=== PATIENT | male | born 1965 | race African-American/Black ===

== ENCOUNTER 2019-12-03 04:45 | Inpatient (IN) | payer MEDICAID, OTHER ==
[~2019-12-03] VITALS: Ht 167.6 cm; Wt 104.0 kg
[2019-12-03] MEDS ORDERED: methylPREDNISolone SOD SUCC 125 MG/2 ML VL IV ONE (07:15)
[2019-12-03] MEDS ORDERED: ALBUTEROL SULF 2.5 MG/0.5ML(0.5%) NEB SOLN HHN ONE (07:15)
[2019-12-03] MEDS ORDERED: IPRATROPIUM BROM 0.5 MG/2.5ML INH SOL HHN ONE (07:15)
[2019-12-03 07:37] LABS: Alanine Aminotransferase 42 U/L (16-61); Albumin 3.4 g/dL (3.4-5.0); Anion Gap 4 (5-15); Blood Urea Nitrogen 7 mg/dL (7-18); Calcium 8.6 mg/dL (8.5-10.1); Carbon Dioxide 29 mmol/L (21-32); Chloride 108 mmol/L (98-107); Glucose 101 mg/dL (74-106); Sodium 141 mmol/L (136-145)
[2019-12-03 07:42] LABS: Alkaline Phosphatase 79 U/L (45-117); Aspartate Aminotransferase 26 U/L (15-37); BUN/Creatinine Ratio 9.1; Bilirubin, Total 0.6 mg/dL (0.2-1.0); GFR African American 135 mL/min; GFR Non-African American 111 mL/min; Total Protein 7.8 g/dL (6.4-8.2)
[2019-12-03 08:32] LABS: Basophils # (auto) 0 uL; Eosinophils # (auto) 0.2 uL; Neutrophils # (auto) 2.3 uL
[2019-12-03 08:34] LABS: Basophils % (auto) 0.4 % (0.0-2.0); Eosinophils % (auto) 4.7 % (0.0-7.0); Hematocrit 46.2 % (41.0-53.0); Hemoglobin 16.2 g/dL (13.5-17.5); Lymphocytes # (auto) 1.6 uL; Lymphocytes % (auto) 34.1 % (10.0-50.0); Monocytes # (auto) 0.4 uL; Monocytes % (auto) 9.8 % (0.0-12.0); Nucleated Red Blood Cells % 0.3 %; Platelet Count (auto) 92 10^3/uL (140-450); Red Blood Cells 4.48 10^6/uL (4.5-5.90); Red Cell Distribution Width 12.8 % (11.8-14.3); White Blood Cell 4.6 10^3/uL (4.4-10.8)
[2019-12-03] MEDS ORDERED: ALBUTEROL SULF 2.5 MG/0.5ML(0.5%) NEB SOLN NEB PRN (10:15)
[2019-12-03] MEDS ORDERED: ACETAMINOPHEN 500 MG TAB PO PRN (10:15)
[2019-12-03] MEDS ORDERED: LACTULOSE 20Gm/30ML SOLN PO PRN (10:15)
[2019-12-03] MEDS ORDERED: NITROGLYCERIN 0.4 MG SL TAB SL PRN (10:15)
[2019-12-03] MEDS ORDERED: traMADol HCL 50 MG TAB PO PRN (10:15)
[2019-12-03] MEDS ORDERED: PROMETHAZINE HCL 25 MG/ML 1ML IV PRN (10:15)
[2019-12-03] MEDS ORDERED: MORPHINE SULF INJ 2 MG/ML SYRINGE 1ML IV PRN (10:15)
[2019-12-03] MEDS ORDERED: OSELTAMIVIR 75 MG CAP PO ONE (10:15)
[2019-12-03] MEDS ORDERED: TEMAZEPAM 15 MG CAP PO PRN (10:15)
[2019-12-03] MEDS ORDERED: THIAMINE 100mg/ml INJ (200mg/2ml VIAL) IV ONE (11:00)
[2019-12-03] MEDS ORDERED: chlordiazePOXIDE HCL 25 MG CAP PO PRN (11:00)
--- NOTE | 2019-12-03 11:05 | NUR ---
MS admit from ER SCOTT PORTER admitted to tele after SBAR received. Patient oriented to SARAH LOVETT, RN primary RN, unit, room, bed, and unit policies regarding patient care and visiting hours. Patient encouraged to call if they need something. All questions and concerns addressed, patient verbalized understanding. Note: vs 97.2, 98% 2L NC, 77hr, 20rr, 124/67 WILL CONTINUE TO MONITOR Q1H AND PRN.
[2019-12-03 11:21] VITALS: BP 110/68
[2019-12-03] MEDS ORDERED: methylPREDNISolone SOD SUCC 40 MG/ML VL IV SCH (12:00)
[2019-12-03] MEDS: chlordiazePOXIDE HCL 5 MG CAP PO SCH ×2 (12:00→18:00)
--- NOTE | 2019-12-03 12:15 | NUR ---
Spoke to Dr. Rivas regarding patients cough and headache. Orders have been received and carried out.
[2019-12-03] MEDS: ALBUTEROL SULF 2.5 MG/0.5ML(0.5%) NEB SOLN NEB SCH ×2 (12:44→18:22)
[2019-12-03] MEDS: IPRATROPIUM BROM 0.5 MG/2.5ML INH SOL NEB SCH ×2 (12:44→18:22)
[2019-12-03] MEDS: SODIUM CHLORIDE 0.9% 1,000 ML IV SCH ×2 (13:14→23:27)
[2019-12-03] MEDS: guaiFENesin-DM 100/10mg/5ml SYR PO PRN ×2 (13:15→20:23)
[2019-12-03] MEDS: ACETAMINOPHEN 500 MG TAB PO PRN ×2 (13:15→20:26)
--- NOTE | 2019-12-03 13:30 | NUR ---
MED REC Patient provided some of his home medications, this information has been reconciled under home meds. Patients family will bring additional home medications tomorrow, to complete home med rec.
[2019-12-03] MEDS: DOXYCYCLINE 100MG/250ML 250 ML IV SCH ×2 (13:54→22:34)
[2019-12-03] MEDS ORDERED: BACL10TA PO (14:19)
[2019-12-03] MEDS ORDERED: HYDR-531 PO (14:19)
[2019-12-03 14:35] VITALS: BP 124/67
[2019-12-03 17:00] VITALS: BP 117/60
[2019-12-03 21:47] VITALS: BP 123/103
[2019-12-03] MEDS: OSELTAMIVIR 75 MG CAP PO SCH (22:00)
[2019-12-03] MEDS: methylPREDNISolone SOD SUCC 40 MG/ML VL IV SCH (22:34)
[2019-12-04] MEDS ORDERED: BACLOFEN 10 MG TAB PO PRN (00:15)
[2019-12-04] MEDS: IPRATROPIUM BROM 0.5 MG/2.5ML INH SOL NEB SCH ×4 (00:43→18:09)
[2019-12-04] MEDS: ALBUTEROL SULF 2.5 MG/0.5ML(0.5%) NEB SOLN NEB SCH ×4 (00:43→18:09)
[2019-12-04 05:53] VITALS: BP 117/69
[2019-12-04] MEDS: chlordiazePOXIDE HCL 5 MG CAP PO SCH ×4 (06:00→17:59)
[2019-12-04 06:40] VITALS: BP 143/54
--- NOTE | 2019-12-04 07:30 | NUR ---
Opening Shift Note Assumed care of patient, awake and alert. No S/S of distress/SOB or pain. Instructed on POC and to call for assist PRN, will continue to monitor for changes Q1hr and PRN. Bed in low and locked position, rails up x2, no-slip socks on. Patient complaining of sore throat and need for [place] for chronic back pain, informed patient he isn't prescribed [place] for pain but will medicate as ordered as well as notify MD of complains, patient verbalizes understanding.
--- NOTE | 2019-12-04 07:52 | NUR ---
Respiratory note: SCHEDULED MED NEB TX NOT GIVEN AT THIS TIME, DUE TO PATIENT REFUSAL. PATIENT STATED THAT THE BREATHING TX IRRITATES THE THROAT AND BEGINS TO COUGH. PATIENT STATED " I'M WILLING TO TAKE IT LATER TODAY." NO RESPIRATORY DISTRESS NOTED OR STATED. WILL CONTINUE TO MONITOR PATIENT.
[2019-12-04] MEDS: guaiFENesin-DM 100/10mg/5ml SYR PO PRN (08:05)
[2019-12-04 09:00] VITALS: BP 95/52
[2019-12-04] MEDS: THIAMINE 100mg/ml INJ (200mg/2ml VIAL) IV SCH (09:49)
[2019-12-04] MEDS: DOXYCYCLINE 100MG/250ML 250 ML IV SCH ×2 (09:49→21:46)
[2019-12-04] MEDS: methylPREDNISolone SOD SUCC 40 MG/ML VL IV SCH ×2 (09:49→21:46)
[2019-12-04] MEDS: ENOXAPARIN SOD 40 MG/0.4 ML SYRINGE SC SCH (09:51)
[2019-12-04] MEDS: OSELTAMIVIR 75 MG CAP PO SCH (10:00)
[2019-12-04] MEDS ORDERED: THROAT LOZENGES(CEPASTAT) MT PRN (11:00)
[2019-12-04] MEDS: HYDROcodone-ACET 10/325MG TAB PO PRN (11:16)
[2019-12-04 13:00] VITALS: BP 136/74
[2019-12-04] MEDS: SODIUM CHLORIDE 0.9% 1,000 ML IV SCH (13:17)
[2019-12-04 16:27] VITALS: BP 156/56
--- NOTE | 2019-12-04 17:00 | NUR ---
DR ANGEL AT BEDSIDE
--- NOTE | 2019-12-04 21:14 | NUR ---
IV insertion/ IV removal IV access obtained, via clean sterile technique by inserting 20 gauge catheter at after 1 attempt. IV secured properly. No trauma to site. Patient tolerated well. IV DC'd with clean sterile technique, catheter fully intact. Pressure dressing applied to site. Patient tolerated well.
[2019-12-04 22:09] VITALS: BP 133/72
[2019-12-05] MEDS: ALBUTEROL SULF 2.5 MG/0.5ML(0.5%) NEB SOLN NEB SCH ×4 (00:22→18:10)
[2019-12-05] MEDS: IPRATROPIUM BROM 0.5 MG/2.5ML INH SOL NEB SCH ×4 (00:22→18:10)
[2019-12-05] MEDS: HYDROcodone-ACET 10/325MG TAB PO PRN (00:55)
[2019-12-05] MEDS: SODIUM CHLORIDE 0.9% 1,000 ML IV SCH ×2 (02:02→05:08)
--- NOTE | 2019-12-05 04:15 | NUR ---
Opening Shift Note Assumed care of patient, asleep, even unlabored respirations. No S/S of distress/SOB or pain. Bed in lowest/locked position, bed rails up x2, call light within reach. Will continue to monitor for changes Q1hr and PRN.
[2019-12-05 05:06] VITALS: BP 123/69
[2019-12-05] MEDS: chlordiazePOXIDE HCL 5 MG CAP PO SCH ×3 (05:21→11:50)
[2019-12-05 05:42] LABS: Basophils # (auto) 0 uL; Basophils % (auto) 0.6 % (0.0-2.0); Eosinophils # (auto) 0 uL; Hematocrit 41.9 % (41.0-53.0); Hemoglobin 14.5 g/dL (13.5-17.5); Lymphocytes # (auto) 0.8 uL; Lymphocytes % (auto) 11.8 % (10.0-50.0); Mean Corpuscular Hemoglobin 36.2 pg (28.0-32.0); Mean Corpuscular Hgb Conc. 34.7 g/dL (32.0-36.0); Mean Corpuscular Volume 104.6 fL (80.0-100.0); Monocytes # (auto) 0.3 uL; Monocytes % (auto) 3.8 % (0.0-12.0); Neutrophils # (auto) 5.5 uL; Neutrophils % (auto) 83.8 % (37.0-80.0); Platelet Count (auto) 96 10^3/uL (140-450); Red Blood Cells 4.01 10^6/uL (4.5-5.90); Red Cell Distribution Width 12.9 % (11.8-14.3); White Blood Cell 6.6 10^3/uL (4.4-10.8)
[2019-12-05 06:02] LABS: Calcium 8.4 mg/dL (8.5-10.1); Potassium 4.2 mmol/L (3.5-5.1)
[2019-12-05 06:04] LABS: BUN/Creatinine Ratio 17.5
[2019-12-05] MEDS: methylPREDNISolone SOD SUCC 40 MG/ML VL IV SCH (09:22)
[2019-12-05] MEDS: THIAMINE 100mg/ml INJ (200mg/2ml VIAL) IV SCH (09:22)
[2019-12-05] MEDS: DOXYCYCLINE 100MG/250ML 250 ML IV SCH (09:23)
[2019-12-05] MEDS: ENOXAPARIN SOD 40 MG/0.4 ML SYRINGE SC SCH (09:23)
[2019-12-05 09:24] VITALS: BP 120/68
[2019-12-05] MEDS: guaiFENesin-DM 100/10mg/5ml SYR PO PRN (09:35)
--- NOTE | 2019-12-05 11:50 | NUR ---
MD ROUNDS DR ANGEL DISCUSSING POC WITH PATIENT. NEW ORDERS RECEIVED/CARRIED OUT.
--- NOTE | 2019-12-05 14:24 | NUR ---
Discharge instructions given as ordered. Encourage to follow up with PMD as instructed. All questions and concerns addressed. Patient verbalized understanding. IV removed with catheter intact, pressure dressing applied. Telemetry unit returned to ICU. Patient taken to vehicle via wheelchair with all personal belongings, accompanied by staff and family member. No distress noted at time of departure.
== END 2019-12-05 14:25 | disposition home or self-care (01) | DRG 145 ==
LOC: ER 04:45 → TELE 04:46 → TELE-WESTW 10:43
PROVIDERS: ADMIT Internal Medicine; ATTEND Internal Medicine
DX: J20.9 Acute bronchitis, unspecified (principal); D69.6 Thrombocytopenia, unspecified; J45.902 Unspecified asthma with status asthmaticus; E66.9 Obesity, unspecified; F17.210 Nicotine dependence, cigarettes, uncomplicated; G89.4 Chronic pain syndrome; Z79.899 Other long term (current) drug therapy; M54.5 Low back pain; R06.03 Acute respiratory distress; F11.20 Opioid dependence, uncomplicated; Z68.37 Body mass index [BMI] 37.0-37.9, adult
CPT/HCPCS: 36415; 71046; 80048; 80053; 83880; 84484; 85025; 87070; 87077; 87186; 87205; 87804; 93005; 94640; 94644; G0378; J3490